=== PATIENT | female | born 1950 | race Caucasian/White ===

== ENCOUNTER 2020-07-19 21:40 | Inpatient (IN) | payer OTHER ==
[~2020-07-19] VITALS: Ht 172.7 cm; Wt 63.5 kg
[2020-07-20] MEDS ORDERED: GABAPENTIN800 MG PO (08:34)
[2020-07-20] MEDS ORDERED: SIMVASTATIN20 MG PO (08:35)
[2020-07-20] MEDS ORDERED: BUSPIRONE HCL30 MG PO (08:35)
[2020-07-20] MEDS ORDERED: CLARITIN 10MG T10 MG PO (08:35)
[2020-07-20] MEDS ORDERED: OMEPRAZOLE20 MG PO (08:35)
[2020-07-20] MEDS ORDERED: LEVOTHYROXINE125 MCG PO (08:36)
[2020-07-20] MEDS ORDERED: ATIVAN 1MG TABLE1 MG PO (08:36)
[2020-07-20] MEDS ORDERED: HYDROCHLOROTHIA25 MG PO (08:36)
[2020-07-20] MEDS ORDERED: SERTRALINE HCL100 MG PO (08:37)
[2020-07-20] MEDS ORDERED: MONTELUKAST SOD10 MG PO (08:37)
[2020-07-20] MEDS ORDERED: OXYCODONE-ACET1 EACH PO (08:38)
[2020-07-20] MEDS ORDERED: FLONASE 0.05% N16 GM (08:38)
[2020-07-20 10:15] LABS: HEMOGLOBIN 17.8 gm/dl (12.3-15.3); RED BLOOD COUNT 6.28 M/UL (4.00-5.10); WHITE BLOOD COUNT 7.8 K/UL (4.5-11.0)
[2020-07-20 10:32] LABS: BUN/CREATININE RATIO 26 (0-10)
[2020-07-20 14:23] LABS: BUN/CREATININE RATIO 26 (0-10)
[2020-07-20 18:32] LABS: BUN/CREATININE RATIO 28 (0-10)
[2020-07-20 22:32] LABS: BUN/CREATININE RATIO 26 (0-10)
[2020-07-21 02:33] LABS: HEMOGLOBIN 16.7 gm/dl (12.3-15.3); RED BLOOD COUNT 5.94 M/UL (4.00-5.10); WHITE BLOOD COUNT 7.8 K/UL (4.5-11.0)
[2020-07-21 02:56] LABS: BUN/CREATININE RATIO 23 (0-10)
[2020-07-21 19:20] LABS: BUN/CREATININE RATIO 27 (0-10)
[2020-07-22 03:53] LABS: HEMOGLOBIN 16.2 gm/dl (12.3-15.3); RED BLOOD COUNT 5.75 M/UL (4.00-5.10); WHITE BLOOD COUNT 8.2 K/UL (4.5-11.0)
[2020-07-22 04:15] LABS: BUN/CREATININE RATIO 24 (0-10)
[2020-07-23 06:58] LABS: HEMOGLOBIN 16.5 gm/dl (12.3-15.3); RED BLOOD COUNT 5.78 M/UL (4.00-5.10); WHITE BLOOD COUNT 8.1 K/UL (4.5-11.0)
[2020-07-23 07:13] LABS: BUN/CREATININE RATIO 20 (0-10)
[2020-07-23] MEDS ORDERED: DECADRON4 MG PO (16:33)
[2020-07-23] MEDS ORDERED: LEVOFLOXACIN500 MG PO (16:33)
[2020-07-23] MEDS ORDERED: SODIUM CHLORIDE1 G1 PO (16:33)
[2020-07-24 07:29] LABS: BUN/CREATININE RATIO 23 (0-10)
[2020-07-25 03:32] LABS: RED BLOOD COUNT 5.74 M/UL (4.00-5.10); WHITE BLOOD COUNT 8.2 K/UL (4.5-11.0)
[2020-07-25 03:50] LABS: BUN/CREATININE RATIO 27 (0-10)
[2020-07-26 03:17] LABS: HEMOGLOBIN 16.7 gm/dl (12.3-15.3); RED BLOOD COUNT 5.93 M/UL (4.00-5.10)
[2020-07-26 03:19] LABS: WHITE BLOOD COUNT 10.3 K/UL (4.5-11.0)
[2020-07-26 03:52] LABS: BUN/CREATININE RATIO 29 (0-10)
--- NOTE | 2020-07-26 11:23 | NUR ---
PATIENT NOTED TO GET UP TO THE BEDSIDE WITH THERAPY AND HAD A SYNCOPE EPISODE. I WAS AT BEDSIDE AT TIME OF EVENT. PATIENT NOTED TO BE UNRESPONISVE. CASHIER AND WAITER/WAITRESS CALLED. PATIENT LAYED BACK DOWN IN BED AND REGAINED CONCIOUSNES. PROVIDER CALLED TO BEDSIDE. VITALS AT TIME OF EVENT:123/73 BP, 96% O2 SAT, PULSE 90 RR20. PATIENT ALSO NOTED TO URINATE ON HERSELF AT TIME OF EVENT. PATIENT IN BED AT THIS TIME. ALL RAILS UP WITH CALL LIGHT IN REACH. NEW ORDERS GUIVEN PER PROVIDER.
--- NOTE | 2020-07-26 12:14 | NUR ---
REPORT CALLED TO STACY RICE IN PCU
[2020-07-27 02:33] LABS: HEMOGLOBIN 15.3 gm/dl (12.3-15.3); RED BLOOD COUNT 5.45 M/UL (4.00-5.10); WHITE BLOOD COUNT 9.1 K/UL (4.5-11.0)
[2020-07-27 02:58] LABS: BUN/CREATININE RATIO 31 (0-10)
[2020-07-28] MEDS ORDERED: ATIVAN 1MG TABLE1 MG PO (10:01)
[2020-07-29] MEDS ORDERED: DILAUDID 2 MG TA2 MG PO (08:50)
[2020-07-29] MEDS ORDERED: FENTANYL1 EAC2 TD (08:50)
[2020-07-29] MEDS ORDERED: DECADRON4 MG PO (08:52)
[2020-07-29] MEDS ORDERED: DILAUDID4 MG PO (11:28)
== END 2020-07-29 14:25 | DRG 981 ==
LOC: MED SURG 4 21:40 → M/S 07-20 08:07 → PROG CARE 07-26 14:14
PROVIDERS: Internal Medicine; Internal Medicine Nephrology; Orthopaedic Surgery; Physician Assistant; ADMIT Internal Medicine
PROC: 0QS03ZZ Reposition Lumbar Vertebra, Percutaneous Approach (ICD-10-PCS; 2020-07-25)
PROC: 0QU03JZ Supplement Lumbar Vertebra with Synthetic Substitute, Percutaneous Approach (ICD-10-PCS; 2020-07-25)
PROC: 0QB03ZX Excision of Lumbar Vertebra, Percutaneous Approach, Diagnostic (ICD-10-PCS; 2020-07-25)
PROC: B01B1ZZ Fluoroscopy of Spinal Cord using Low Osmolar Contrast (ICD-10-PCS; 2020-07-25)
PROC: B24BZZ4 Ultrasonography of Heart with Aorta, Transesophageal (ICD-10-PCS; principal; 2020-07-25 13:00)
DX: C34.91 Malignant neoplasm of unspecified part of right bronchus or lung (principal); J18.9 Pneumonia, unspecified organism; J96.01 Acute respiratory failure with hypoxia; G93.6 Cerebral edema; M48.56XA Collapsed vertebra, not elsewhere classified, lumbar region, initial encounter for fracture; C79.31 Secondary malignant neoplasm of brain; E22.2 Syndrome of inappropriate secretion of antidiuretic hormone; E44.0 Moderate protein-calorie malnutrition; J96.11 Chronic respiratory failure with hypoxia; Z20.822 Contact with and (suspected) exposure to COVID-19; Z51.5 Encounter for palliative care; Z66 Do not resuscitate; M81.0 Age-related osteoporosis without current pathological fracture; R32 Unspecified urinary incontinence; D69.6 Thrombocytopenia, unspecified; R63.4 Abnormal weight loss; E83.52 Hypercalcemia; E03.9 Hypothyroidism, unspecified; F17.210 Nicotine dependence, cigarettes, uncomplicated; F32.9 Major depressive disorder, single episode, unspecified; J43.2 Centrilobular emphysema; I45.10 Unspecified right bundle-branch block; K21.9 Gastro-esophageal reflux disease without esophagitis; E78.5 Hyperlipidemia, unspecified; Z90.2 Acquired absence of lung [part of]; Z90.49 Acquired absence of other specified parts of digestive tract; Z88.6 Allergy status to analgesic agent; Z88.2 Allergy status to sulfonamides; Z83.3 Family history of diabetes mellitus; Z83.79 Family history of other diseases of the digestive system; Z68.21 Body mass index [BMI] 21.0-21.9, adult
CPT/HCPCS: ECHO; 36415; 36600; 70450; 70551; 71045; 72040; 72070; 72100; 80048; 80053; 81001; 82436; 82533; 82550; 82553; 82803; 83880; 83935; 84133; 84300; 84439; 84443; 84484; 85025; 85027; 85610; 88341; 93005; 93306; 94640; 94664; 94760; 97116-GP-CQ; 97162; 97164; 97166; 97530-GP-CQ; C1713; G0379; J0690; J1100; J1170; J1956; J2001; J2405; J2704; J3010; J7050; J7120; Q9962; U0002